=== PATIENT | male | born 1980 | race Caucasian/White ===

== ENCOUNTER 2021-10-25 21:18 | Emergency (ER) | payer BC ==
[~2021-10-25] VITALS: Ht 162.6 cm; Wt 99.8 kg
--- NOTE | 2021-10-25 21:30 | NUR ---
Patient BIB [facility] in the middle of the stress c/o SOB since AM and with a history of asthma. Addendum: 10/26/21 at [address]
--- NOTE | 2021-10-25 21:40 | NUR ---
Seen by ER MD Santos for MSE.
[2021-10-25] MEDS ORDERED: IPRATROPIUM BROMIDE 0.5 MG/2.5 ML NEBU NEB ONE (21:45)
[2021-10-25] MEDS ORDERED: methylPREDNISolone SOD SUCC 125 MG/2 ML VIAL IV ONE (21:45)
[2021-10-25] MEDS ORDERED: MAGNESIUM SULFATE 2 GM in IV DEXTROSE 5% 100 ML IV ONE (21:45)
[2021-10-25] MEDS ORDERED: IV NORMAL SALINE 1000 ML BAG IV ONE (21:45)
[2021-10-25] MEDS ORDERED: ALBUTEROL SULFATE 2.5 MG/3 ML NEBU NEB ONE (21:45)
--- NOTE | 2021-10-25 22:00 | NUR ---
Patient was rowdy at the room, yelling and screaming at staff members complaining of other patient, stating, "I can't be here. She is cursing me in a [place]." Tried to calm down patient, however, he was being uncooperative and angry. Pulled out medical equipments. Called security for help. Nursing computer operations supervisor made aware.
[2021-10-25 22:04] LABS: HEMATOCRIT 46.8 % (36.7-47.1); MEAN CORPUSCULAR HEMOGLOBIN 30.2 uug (23.8-33.4); MEAN CORPUSCULAR VOLUME 90.6 fL (73.0-96.2); PLATELET COUNT (AUTO) 225 K/uL (152-348)
[2021-10-25 22:06] LABS: POTASSIUM 3.7 mmol/L (3.5-5.1)
--- NOTE | 2021-10-25 22:30 | NUR ---
Patient's at bedside. Patient was calm upon seeing and talking with .
--- NOTE | 2021-10-25 22:45 | NUR ---
Went back to room, patient began being hostile and violent to staff members. Security, nursing program supervisor at bedside. Patient yelling, "I am getting out of here."
--- NOTE | 2021-10-25 23:00 | NUR ---
Patient refused medication and pulled out IV site. Dressing applied at IV site. Patient does not wish to proceed with medical care recommended by Dr. Santos. Patient given information related to possible complications, up to and including , which could occur as a result of leaving the hospital at this time. Patient stated, "I do not want to sign and I am getting out of here." Patient refused to sign AMA form. Charge nurse and ER MD Santos made aware. Patient left ambulatory with steady gait. A/Ox4. Medication wasted at pykxis and discarded at bin.
[2021-10-25] MEDS ORDERED: ALBUTEROL SULFATE 2.5 MG/ 0.5 ML NEBU ONE (23:07)
[2021-10-25] MEDS ORDERED: IPRATROPIUM BROMIDE 0.5 MG/2.5 ML NEBU ONE (23:07)
[2021-10-25] MEDS ORDERED: methylPREDNISolone SOD SUCC 125 MG/2 ML VIAL ONE (23:11)
--- NOTE | 2021-11-08 19:31 | NUR ---
10/25/212107 HR 90, RR 18, SpO2-99% 2107 HR 91,RR 18, SpO2 98% Pt proceeded to AMA Addendum: 11/08/21 at 2127 by JINA EM RT Correction, second 2107 is approx. at 2308 when pt proceeded to AMA. Addendum: 11/12/21 at 2204 by JINA EM RT Here is the proper post note (disregard above) 10/25/212106 HR 81 resp. rate 18 SpO2-99% Room Air (FIO2-21%) Anterior Inspiratory and expiratory clear throughout
== END 2021-10-25 23:00 | disposition left against medical advice (07) ==
LOC: ER 21:20
DX: J45.902 Unspecified asthma with status asthmaticus (principal); M79.7 Fibromyalgia; Z88.6 Allergy status to analgesic agent
CPT/HCPCS: 36415; 85025; 93005; J2930; J3590